=== PATIENT | female | born 1970 | race Caucasian/White ===

== ENCOUNTER 2020-02-28 16:11 | Emergency (ER) | payer OTHER ==
[~2020-02-28 16:11] MED LIST: Iopamidol-370 76% 500 ML 1 ML ONE
[2020-02-28 16:46] LABS: #Eosinphils 0.1 thou/uL (0.0-0.7); #Lymphocytes 1.8 thou/uL (1.20-3.40); #Monocytes 0.8 thou/uL (0.11-0.59); #Neutrophils 6.1 thou/uL (1.40-6.50); %Basophils 0.5 % (0.0-1.0); %Eosinophils 1.6 % (0.0-10.0); %Lymphocytes 20.3 % (21.0-51.0); %Monocytes 9.4 % (0.0-10.0); %Neutrophils 68.3 % (42.0-75.0); Hemoglobin 12.7 g/dL (12.0-16.0); Mean Corpuscular Hemoglobin 31.5 pg (27.0-31.0); Mean Corpuscular Volume 95.4 fL (78.0-98.0); Platelet Count 187 thou/uL (130-400); RBC Distribution Width 12.2 % (11.5-14.5); Red Blood Cell (RBC) Count 4.05 mill/uL (4.20-5.40)
[2020-02-28] MEDS ORDERED: Ondansetron PF 4 MG/2 ML Vial ONE (16:47)
[2020-02-28] MEDS ORDERED: Aspirin Chewable 81 MG TAB ONE (16:47)
[2020-02-28] MEDS ORDERED: Morphine 4 MG/ML VIAL ONE (16:47)
--- NOTE | 2020-02-28 16:58 | RAD ---
EXAM: CHEST ONE VIEW HISTORY: Left lower quadrant abdominal pain, left arm pain, nausea. COMPARISON: 03/15/2010 FINDINGS: The cardiac silhouette and pulmonary vasculature are within normal limits. The lungs are clear. The o sseous structures are intact. No interval change from prior study. IMPRESSION: No acute cardiopulmonary process.
[2020-02-28 17:13] LABS: ALT (SGPT) 17 U/L (8-55); AST (SGOT) 14 U/L (5-34); Alkaline Phosphatase 61 U/L (40-110); Anion Gap 12 mmol/L (10-20); BUN (Urea Nitrogen) 15 mg/dL (7.0-18.7); Bilirubin, Total 0.5 mg/dL (0.2-1.2); Calc. Creatinine Clearance 0 mL/min (70-130); Calcium 9.4 mg/dL (7.8-10.44); Carbon Dioxide 25 mmol/L (22-29); Chloride 105 mmol/L (98-107); Globulin 2.5 g/dL (2.4-3.5); Glucose 127 mg/dL (70-105); Lipase 24 U/L (8-78); Potassium 3.5 mmol/L (3.5-5.1); Protein, Total 6.5 g/dL (6.0-8.3); Sodium 138 mmol/L (136-145)
[2020-02-28 17:20] LABS: Bacteria/HPF None Seen HPF (None Seen); Bilirubin Negative (Negative); Blood, Urine Trace (Negative); Clarity Turbid (Clear); Glucose, Urine (Dipstick) Normal (Negative); Ketone, Urine Negative (Negative); Leukocyte Negative Leu/uL (Negative); Nitrite Negative (Negative); Protein, Urine (Dipstick) Negative (Neg-Trace); RBC/HPF 0-3 HPF (0-3); Specific Gravity, Urine 1.024 (1.002-1.036); Urobilinogen Normal mg/dL (Less than 2); WBC/HPF 0-3 HPF (0-3); pH, Urine 5.5 (5.0-9.0)
--- NOTE | 2020-02-28 18:04 | CT ---
CT abdomen and pelvis with IV contrast HISTORY: Left lower quadrant pain. FINDINGS: The lung bases are clear. A 0.4 cm cyst is noted within the medial segment left liver lobe. A 1.2 cm cortical cyst projects laterally from the midportion left kidney. No free air or free fluid. No evidence of bowel obstruction or inflammation. Urinary bladder is unrem arkable. An oval 4.3 cm well-circumscribed fluid density mass lies at the expected location of the right adnex a. Small left follicles are also present. Fluid density expansion of endometrium measuring up to 1.1 cm thickness. IMPRESSION : Right ovarian cyst 4.3 cm. Mild fluid distention of the endometrium. 1.1 cm
--- NOTE | 2020-02-28 19:08 | ULT ---
Pelvic sonogram transabdominal imaging with duplex evaluation HISTORY: Pelvic pain. FINDINGS: Urinary bladder is incompletely distended. Uterus has a homogeneous echotexture and measure s up to 8.6 cm. Fundal endometrial cavity obscured by bowel gas. No endometrial thickening evident on this exam. No free fluid within the pelvis. Right ovary measures up to 4.9 cm. Simple cyst measures up to 4.4 cm. Good color and spectral Doppler flow. Left ovary measures up to 2.3 cm with good color and spectral Doppler flow. Small follicles. IMPRESSION : Right ovarian cyst 4.4 cm.
== END 2020-02-28 20:59 | disposition home or self-care (01) ==
LOC: ERS 16:11
DX: K57.90 Diverticulosis of intestine, part unspecified, without perforation or abscess without bleeding (principal); N83.201 Unspecified ovarian cyst, right side; F17.210 Nicotine dependence, cigarettes, uncomplicated
CPT/HCPCS: 36415; 71045; 74177; 76856; 80053; 81003; 81015; 83690; 84484; 85025; 93005; 93976; 96374; 96375; J2270; J2405; Q9967

== ENCOUNTER 2023-05-27 20:30 | Emergency (ER) | payer SELFPAY ==
[~2023-05-27 20:30] MED LIST changes: -Iopamidol-370 76% 500 ML 1 ML ONE; +Iopamidol-370 76% 500 ML MDV (1 ML CHARGE) ONE
[2023-05-27 20:57] LABS: Bilirubin Negative (Negative); Blood, Urine Negative (Negative); Glucose, Urine (Dipstick) Negative (Negative); Ketone, Urine Trace mg/dL (Negative); Leukocyte Negative (Negative); Nitrite Negative (Negative); Protein, Urine (Dipstick) 100 mg/dL (Neg-Trace); Specific Gravity, Urine 1.015 (1.005-1.030); Urobilinogen 0.2 mg/dL (Less than 2); pH, Urine 8.5 (5.0-9.0)
[2023-05-27 21:02] LABS: Clarity Clear (Clear)
[2023-05-27 21:04] LABS: Pregnancy Test - Urine (BHCG) Negative (Negative)
[2023-05-27 21:05] LABS: Pregu Control Background? CLEAR/WHITE (CLR/WHITE); Pregu Control Bar Appear? YES (CONTROL BAR); Specific Gravity 1.015 (1.002-1.036)
[2023-05-27 21:07] LABS: CAUTI Indications for Culture Pelvic or flank pain; RBC/HPF 0-3 HPF (0-3); Squamous Epithelial 0-3 HPF (0-3); WBC/HPF 0-3 HPF (0-3)
[2023-05-27 21:08] LABS: Bacteria/HPF 2+ HPF (None Seen)
[2023-05-27 21:09] LABS: Mucous/LPF 1+ LPF (<2+); Other Microscopic Description Less than 2 mL rec'd
[2023-05-27 21:11] LABS: Urine Culture Reflex No No
[2023-05-27] MEDS ORDERED: Ketorolac Tromethamine 30 MG (1 mL) VIAL ONE ×2 (21:19→21:53)
[2023-05-27 21:20] LABS: #Basophils 0.03 10x3/uL (0.0-0.2); %Basophils 0.3 % (0.0-1.0); %Eosinophils 0.6 % (0.0-10.0); %Lymphocytes 11.8 % (21.0-51.0); %Neutrophils 80.1 % (42.0-75.0); Hemoglobin 13.7 g/dL (12.0-16.0); Mean Corpuscular HGB CONC 34.3 g/dL (32.0-36.0); Mean Corpuscular Hemoglobin 30.6 pg (27.0-31.0); Mean Corpuscular Volume 89.3 fL (78.0-98.0); Mean Platelet Volume 10.3 fL (7.4-10.4); Platelet Count 197 10x3/uL (130-400); Red Blood Cell (RBC) Count 4.48 mill/uL (4.20-5.40)
[2023-05-27 21:37] LABS: ALT (SGPT) 21 U/L (8-55); AST (SGOT) 20 U/L (5-34); Albumin 4.3 g/dL (3.5-5.0); Alkaline Phosphatase 88 U/L (40-110); Anion Gap 17 mmol/L (10-20); BUN (Urea Nitrogen) 16 mg/dL (9.8-20.1); Bilirubin, Total 0.5 mg/dL (0.2-1.2); Calc. Creatinine Clearance 0 mL/min (70-130); Calcium 9.8 mg/dL (7.8-10.44); Carbon Dioxide 27 mmol/L (22-29); Chloride 102 mmol/L (98-107); Estimated GFR 76; Globulin 2.9 g/dL (2.4-3.5); Glucose 130 mg/dL (70-105); Lipase 52 U/L (8-78); Potassium 3.6 mmol/L (3.5-5.1); Protein, Total 7.2 g/dL (6.0-8.3); Sodium 142 mmol/L (136-145)
[2023-05-27] MEDS ORDERED: Famotidine/PF 20 mg/2ml Vial ONE (21:38)
[2023-05-27] MEDS ORDERED: Ondansetron PF 4 MG/2 ML Vial ONE (21:38)
[2023-05-27] MEDS ORDERED: Morphine 4 MG/ML VIAL ONE (21:38)
[2023-05-27 21:41] LABS: BHCG - Serum Negative (NEGATIVE); Pregs Control Background? CLEAR/WHITE (CLR/WHITE); Pregs Control Bar Appear? YES (CONTROL BAR)
== END 2023-05-27 23:04 | disposition home or self-care (01) ==
LOC: ERS 20:30
DX: R10.9 Unspecified abdominal pain (principal); R93.3 Abnormal findings on diagnostic imaging of other parts of digestive tract; R11.10 Vomiting, unspecified; F17.210 Nicotine dependence, cigarettes, uncomplicated; F17.290 Nicotine dependence, other tobacco product, uncomplicated
CPT/HCPCS: 74177; 80053; 81001; 81025; 83690; 84484; 84703; 85025; 87086; 93005; 96374; 96375; J1885; J2270; J2405; Q9967; S0028